=== PATIENT | female | born 1980 ===

== ENCOUNTER 2018-02-20 05:24 | Emergency (ER) | payer SELFPAY ==
[2018-02-20 05:41] VITALS: RESP 20
[2018-02-20] MEDS ORDERED: Bacitracin 500 Units/gm Oint Foilpak UD ONE (05:41)
[2018-02-20] MEDS ORDERED: Tetanus/Diphtheria Toxoids 0.5 ml Syringe IM ONE (05:55)
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
[2018-02-20 07:04] VITALS: BP 124/72; PULSE 84; TEMP 98.1; O2SAT 99
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
== END 2018-02-20 07:04 | disposition home or self-care (01) ==
LOC: C.ER 05:24
DX: S16.1XXA Strain of muscle, fascia and tendon at neck level, initial encounter (principal); S83.91XA Sprain of unspecified site of right knee, initial encounter; S53.402A Unspecified sprain of left elbow, initial encounter; S80.211A Abrasion, right knee, initial encounter; S50.312A Abrasion of left elbow, initial encounter; S00.81XA Abrasion of other part of head, initial encounter; Y08.89XA Assault by other specified means, initial encounter